=== PATIENT | male | born 1955 | race Caucasian/White ===

== ENCOUNTER 2018-07-17 10:11 | Emergency (ER) | payer BC ==
[2018-07-17 11:48] LABS: WHITE BLOOD COUNT 3.5 10^3/ul (4.8-10.8)
[2018-07-17 11:48] LABS: HEMATOCRIT 42.4 % (42.0-52.0); MEAN CORPUSCULAR HEMOGLOBIN 34.6 pg (29.0-33.0); MEAN CORPUSCULAR HGB CONC 35.4 g/dl (32.0-37.0); MEAN CORPUSCULAR VOLUME 97.7 fl (82.0-101.0); MEAN PLATELET VOLUME 10.1 fl (7.4-10.4); PLATELET COUNT 232 10^3/UL (140-415); POSITIVE DIFF @See below; RED BLOOD COUNT 4.34 10^6/ul (4.70-6.10); RED CELL DISTRIBUTION WIDTH 12.1 % (11.5-14.5)
[2018-07-17 11:49] LABS: ADD MAN DIFF? YES
[2018-07-17 11:56] LABS: ALANINE AMINOTRANSFERASE 292 IU/L (13-69); ALBUMIN 3.9 g/dl (3.3-4.9); ALBUMIN/GLOBULIN RATIO 1.08; ALKALINE PHOSPHATASE 388 IU/L (42-121); ANION GAP 13 (8-16); ASPARTATE AMINO TRANSFERASE 387 IU/L (15-46); BILIRUBIN,INDIRECT 0.5 mg/dl (0-1.1); BILIRUBIN,TOTAL 0.5 mg/dl (0.2-1.3); BLOOD UREA NITROGEN 12 mg/dl (7-20); CALCIUM 9.4 mg/dl (8.4-10.2); CARBON DIOXIDE 31 mmol/L (21-31); CHLORIDE 98 mmol/L (97-110); CREATININE 1.11 mg/dl (0.61-1.24); GLUCOSE 99 mg/dl (70-220); POTASSIUM 4.6 mmol/L (3.5-5.1); SODIUM 137 mmol/L (135-144); TOTAL PROTEIN 7.5 g/dl (6.1-8.1)
[2018-07-17 12:00] LABS: PARTIAL THROMBOPLASTIN TIME 29.2 Sec (25.0-35.0); PROTIME 12.2 Sec (11.9-14.9)
[2018-07-17 12:07] LABS: TROPONIN-I < 0.010 ng/ml (0.000-0.120)
[2018-07-17] MEDS: SODIUM CHLORIDE 0.9% 1L BAG IV* (12:13)
[2018-07-17] MEDS: SOD CHLORIDE 0.9% 1,000 ML IV (12:13)
[2018-07-17 12:15] LABS: LIPASE 39 U/L (23-300)
[2018-07-17 12:32] LABS: LACTIC ACID 0.8 mmol/L (0.5-2.0)
[2018-07-17 12:42] LABS: ADD UMIC NO; UR ASCORBIC ACID NEGATIVE (NEGATIVE); UR BILIRUBIN (Dip) NEGATIVE (NEGATIVE); UR BLOOD (Dip) NEGATIVE (NEGATIVE); UR CLARITY CLEAR (CLEAR); UR COLOR AMBER (YELLOW); UR GLUCOSE (Dip) NEGATIVE (NEGATIVE); UR KETONES (Dip) NEGATIVE (NEGATIVE); UR LEUKOCYTE ESTERASE (Dip) NEGATIVE Leu/ul (NEGATIVE); UR NITRITE (Dip) NEGATIVE (NEGATIVE); UR SPECIFIC GRAVITY (Dip) 1.016 (1.003-1.030); UR TOTAL PROTEIN (Dip) NEGATIVE (NEGATIVE); UR UROBILINOGEN (Dip) 2+ mg/dL (NEGATIVE)
[2018-07-17 12:56] LABS: BAND NEUTROPHILS #M 0.6 10^3/ul (0.0-0.6); BAND NEUTROPHILS % (M) 18 % (0-4); EOSINOPHILS % (M) 15 % (0-7); LYMPHOCYTES % (M) 2 % (15-51); MONOCYTE #M 0.4 10^3/ul (0.3-0.9); MONOCYTES % (M) 13 % (0-11); PLATELET ESTIMATE NORMAL; POLYCHROMASIA 1+ (0-0); REACTIVE LYMPHOCYTES #M 0.3 10^3/ul (0.0-0.0); REACTIVE LYMPHOCYTES% (M) 9 % (0-0); SEG NEUT #M 1.5 10^3/ul (1.6-7.5); SEGMENTED NEUTROPHILS (M) % 43 % (39-77); SMUDGE%M 15 % (0-0)
[2018-07-17] MEDS: SOD CHLORIDE 0.9% 100 ML (13:03)
[2018-07-17] MEDS: IOHEXOL 300MG/ML 150 ML BTL (13:04)
[2018-07-17 15:54] LABS: HAAIG REFLEX REFLEX FILED
[2018-07-17 16:33] LABS: HEPATITIS B SURFACE ANTIGEN NEGATIVE (NEGATIVE)
[2018-07-17 16:51] LABS: HEPATITIS B CORE ANTIBODY REACTIVE (NEGATIVE); HEPATITIS C VIRAL ANTIBODY NEGATIVE (NEGATIVE)
[2018-07-19 20:22] LABS: EBV VIRAL CAPSID AG AB (IGM) <36.00 U/mL
[2018-07-20 18:18] LABS: CMV DNA QL SOURCE PLASMA
== END 2018-07-17 14:40 | disposition home or self-care (01) ==
LOC: E/R 10:11
DX: I95.9 Hypotension, unspecified (principal); R74.0 Nonspecific elevation of levels of transaminase and lactic acid dehydrogenase [LDH]; R50.9 Fever, unspecified; E03.9 Hypothyroidism, unspecified; R07.9 Chest pain, unspecified; Z79.82 Long term (current) use of aspirin; Z95.0 Presence of cardiac pacemaker
CPT/HCPCS: 36415; 71045; 74177; 76705; 80053; 81003; 83605; 83690; 84439; 84443; 84484; 85025; 85610; 85730; 86664; 86704; 86709; 86803; 87040; 87086; 87340; 87496; 93005; 99285-25